=== PATIENT | female | born 1990 | race Caucasian/White ===

== ENCOUNTER 2022-06-03 09:54 | Emergency (ER) | payer OTHER ==
--- NOTE | 2022-06-03 11:19 | ED ---
General Adult HPI - General Chief complaint: Recheck/Abnormal Lab/Rx Stated complaint: long term clearance Time Seen by Provider: 06/03/22 09:54 Source: patient, police, RN notes reviewed Mode of arrival: wheelchair Limitations: no limitations - History of Present Illness Initial comments: This is a 31-year-old female presents emergency Department with police for long term clearance. Patient acutely intoxicated patient was driving on intoxicated per report. Patient has no physical injuries she does admit that she drinks and regular basis. Patient denies any drug use. Patient denies any current medications NO KNOWN DRUG ALLERGIES. Reports patient blew point 0.3 on breath alcohol - Related Data Allergies Allergy/AdvReac Type Severity Reaction Status Date / Time No Known Allergies Allergy Verified 06/03/22 09:59 Review of Systems ROS Statement: Those systems with pertinent positive or pertinent negative responses have been documented in the HPI. ROS Other: All systems not noted in ROS Statement are negative. Past Medical History Past Medical History: No Reported History History of Any Multi-Drug Resistant Organisms: None Reported Past Surgical History: No Surgical Hx Reported Past Psychological History: No Psychological Hx Reported Smoking Status: Current every day smoker Past Alcohol Use History: Daily Past Drug Use History: None Reported General Exam Limitations: no limitations General appearance: alert, in no apparent distress Head exam: Present: atraumatic, normocephalic, normal inspection Eye exam: Present: normal appearance, PERRL, EOMI. Absent: scleral icterus, conjunctival injection, periorbital swelling ENT exam: Present: normal exam, mucous membranes moist Neck exam: Present: normal inspection. Absent: tenderness, meningismus, lymphadenopathy Respiratory exam: Present: normal lung sounds bilaterally. Absent: respiratory distress, wheezes, rales, rhonchi, stridor Cardiovascular Exam: Present: regular rate, normal rhythm, normal heart sounds. Absent: systolic murmur, diastolic murmur, rubs, gallop, clicks Course Vital Signs 06/03/22 09:57 Temperature 97.5 F L Pulse Rate 95 Respiratory 20 Rate Blood Pressure 184/118 O2 Sat by Pulse 98 Oximetry Medical Decision Making - Medical Decision Making 31-year-old female presented for acute alcohol intoxication patient is medically cleared for long term she did have some mild hypotension she was advised to follow palpation for her blood pressure. Disposition Clinical Impression: Alcohol intoxication, Medical clearance for incarceration Disposition: HOME SELF-CARE Condition: Stable Additional Instructions: Please follow up outpatient regarding your blood pressure.Please return to the Emergency Department if symptoms worsen or any other concerns. Is patient prescribed a controlled substance at d/c from ED?: No Referrals: None,Stated [Primary Care Provider] - 1-2 days Time of Disposition: 10:55
[2022-06-03] MEDS ORDERED: cloNIDine HCL 0.2 MG TAB PO STA (12:04)
[2022-06-03 12:13] VITALS: BP 180/116; PULSE 53; RESP 18; TEMP 98.1
== END 2022-06-03 12:12 | disposition home or self-care (01) ==
LOC: EC 09:54
DX: F10.129 Alcohol abuse with intoxication, unspecified (principal); F17.200 Nicotine dependence, unspecified, uncomplicated
CPT/HCPCS: 99283